=== PATIENT | male | born 1985 | race Caucasian/White ===

== ENCOUNTER 2018-07-02 05:06 | Emergency (ER) | payer OTHER ==
[~2018-07-02] VITALS: Ht 172.7 cm; Wt 64.6 kg
[2018-07-02 05:11] VITALS: BP 122/75; PULSE 63; TEMP 36.6; O2SAT 98; Ht 172.7 cm; Wt 64.6 kg
[2018-07-02] MEDS ORDERED: TRAM-10 PO (05:21)
[2018-07-02] MEDS ORDERED: CLIN150C PO (05:21)
--- NOTE | 2018-07-02 05:25 | EMERGENCY ROOM VISIT NOTE ---
History First contact with patient: 05:14 Chief Complaint: DENTAL PAIN Stated Complaint: TOOTH ACHE Nursing Triage Summary: Appointment with dentist in 2 weeks. States pain is worse tonight. History of Present Illness The patient is a 32 year old male who presents to the Emergency Room with complaints of dental pain for the past several days he was an appointment in 2 weeks with dentistry. Patient tried clove oil and Orajel with no relief of symptoms. He is on Subutex. He describes pain as aching, ranging in severity 8 out of 10 worse with chewing and better with rest. It does not radiate. Patient denies fever, chills, cough, congestion, facial swelling, dysphagia, neck stiffness, headache, lightheadedness or dizziness or any other medical complaints. No current IV drug abuse. Review of Systems An 10 system review of systems was completed with positives and pertinent negatives listed in the HPI. Past Medical/Surgical History History of drug addiction on Subutex Social History Smoking Status: Current Every Day Smoker Smokeless Tobacco Use: No Alcohol Use: none Occupation Status: employed Current/Historical Medications Scheduled Clindamycin Hcl (Cleocin), 150 MG PO QID Scheduled PRN Tramadol (Ultram), 1-2 TAB PO Q4H PRN for Pain Physical Exam Vital Signs Date Time Temp Pulse Resp B/P (MAP) Pulse Ox O2 Delivery O2 Flow Rate FiO2 07/02/18 05:11 36.6 63 18 122/75 98 Room Air Physical Exam VITALS: Vitals are noted on the nurse's note and reviewed by myself. Vital signs stable. GENERAL: White male tobacco odor, in no acute distress, nondiaphoretic, well- developed well-nourished. SKIN: The skin was without rashes, erythema, edema, or bruising. There is no tenting of the skin. Capillary reflex less than 2 seconds. HEAD: Normocephalic atraumatic. EARS: External auditory canals clear, tympanic membranes pearly sinclair without erythema or effusion bilaterally. EYES: Pupils equal round and reactive to light and accommodation. Conjunctivae without injection, sclerae without icterus. Extraocular movements intact. NOSE: Patent, turbinates without inflammation or discharge. No sinus tenderness. Dental exam: Extensive plaque built with extensive dental decay to the left lower second molar without palpable abscess. Overall dental hygiene fair MOUTH: Mucous membranes moist. Pharynx without erythema or exudate. Uvula midline. Airway patent. Tongue does not deviate. No Vu's angina NECK: Supple without nuchal rigidity. No lymphadenopathy. No thyromegaly. Cervical spine is nontender. No JVD. HEART: Regular rate and rhythm without murmurs gallops or rubs. LUNGS: Clear to auscultation bilaterally without wheezes, rales or rhonchi. No retractions or accessory muscle use. ABDOMEN: Positive bowel sounds x 4. Normal tympanic percussion. Soft, nontender, without masses or organomegaly. James sign negative. No guarding or rebound tenderness. No CVA tenderness MUSCULOSKELETAL: No muscle atrophy, erythema, or edema noted. NEURO: Patient was alert and oriented to person place and time. Normal sensation to light and sharp touch. No focal neurological deficits. Medical Decision & Procedures ED Course Prior records reviewed and summarized as above. Triage Nursing notes reviewed. The patient's history was concerning for dental pain Differential diagnosis: Etiologies such as Vu angina, cellulitis, abscess, gingivitis, as well as others were entertained.. Physical examination: The physical examination was consistent with dental pain from dental caries ER treatment provided: Ultram, clindamycin On reassessment the patient felt better. Diagnostics interpreted by me: Deferred This appears to be dental pain from dental caries. Patient had no palpable abscess. No signs of airway compromise. No Vu's angina. He was counseled on proper dental hygiene and advised to take medications as directed and to see his dentist as soon as possible for definitive care for his ongoing dental problems. He was advised to return to the ER immediately for fevers, facial swelling, dysphagia, worsening signs or symptoms or as needed. By the evaluation outlined above emergent etiologies such as abscess, Vu's angina, as well as others were deemed relatively unlikely. The pt informed about the findings as listed above. All questions were answered and pleased with the treatment. Return instructions were outlined and the patient was discharged in stable condition. Outpatient prescription management: Ultram, clindamycin Referral: The patient was referred back to dentistry and primary care physician for follow -up in 2 to 3 days for a recheck of the current condition. The chart was completed utilizing [employer] voice recognition software. Grammatical errors, random word insertions, pronoun errors, and incomplete sentences are an occassional consequence of this system due to software limitations, ambient noise, and hardware issues. Any formal questions or concerns about the content, text, or information contained within the body of this dictation should be directly addressed to the physician photographer assistant for clarification. Medical Decision As above [place] Drug Monitoring Program Search Results: patient reviewed within database, see additional documentation (On chronic Subutex) Medication Reconcilliation Current Medication List: was personally reviewed by me Blood Pressure Screening Patient's blood pressure: Normal blood pressure Impression Primary Impression: Dental caries Additional Impression: Tooth pain with chewing Departure Information Dispostion Home / Self-Care Condition GOOD Prescriptions Tramadol (Ultram) 50 Mg Tab 1-2 TAB PO Q4H Y for Pain, #14 TAB For Initial Treatment Prov: Khalida Land .KANE 07/02/18 Clindamycin Hcl (CLEOCIN) 150 Mg Cap 150 MG PO QID for 9 Days, #36 CAP Prov: Khalida Land .KANE 07/02/18 Referrals No Doctor, Assigned (PCP) Forms HOME CARE DOCUMENTATION FORM, IMPORTANT VISIT INFORMATION Patient Instructions Decay Tooth, My [facility] Additional Instructions Clindamycin 150mg: Take one pill 4 times daily for 10 days for your infection. Take with food, but avoid dairy. Avoid prolonged sun exposure since this medication makes you temporarily more susceptible to sunburns. All antibiotics can cause diarrhea. If this occurs and you feel worse or it does not resolve in 1-2 days follow up with your doctor or return to the Emergency Department as this could be signs of serious underlying problems. Any medication can cause an allergic reaction, stop the pills immediately and return to the ER for rash, hives, breathing difficulties, or swelling. Ultram 50 mg: Take 1-2 pills every four hours for breakthrough pain. Avoid alcohol, operating machinery or dangerous equipment, working on ladders or roofs , DRIVING, or situations where being under the influence may be dangerous. It is recommended to use an [id number] stool softener such as Colace, 100mg twice daily while taking this medication to avoid constipation. Ibuprofen(Motrin, Advil) may be used for fever or pain. Use 600mg every six hours as needed. Take with food. Avoid using more than 2400mg in a 24 hour period. Do not use 2400mg per day for more than three consecutive days without physician direction. Prolonged inappropriate use can lead to stomach upset or ulcers. This medication can be taken if you need to drive, work, or perform activities which may be dangerous when taking narcotic pain medication. (AND/OR) Acetaminophen(Tylenol) may be used for fever or pain. Use 1000mg every six hours as needed. Avoid using more than 3000mg in a 24 hour period. This medication can be taken if you need to drive, work, or perform activities which may be dangerous when taking narcotic pain medication. [place] teeth twice a day, floss daily and do warm saltwater gargles 3 times a day. See a dentist as soon as possible for definitive care for your dental problem. Return to ER sooner for facial swelling, fever, redness, worsening signs or symptoms or as needed. Problem Qualifiers
[2018-07-02] MEDS ORDERED: TRAMADOL HCL 50 MG HOME PACK PO ONE (05:30)
[2018-07-02] MEDS ORDERED: CLINDAMYCIN 150MG HOME PACK PO ONE (05:30)
== END 2018-07-02 05:30 | disposition home or self-care (01) ==
LOC: C.EDB 05:08 → C.EDA 05:30
DX: K02.9 Dental caries, unspecified (principal); Z79.899 Other long term (current) drug therapy; F17.200 Nicotine dependence, unspecified, uncomplicated